=== PATIENT | male | born 1985 | race Caucasian/White ===

== ENCOUNTER 2023-09-14 21:01 | Emergency (ER) | payer MEDICARE, MEDICAID, SELFPAY ==
[2023-09-14 21:11] VITALS: BP 132/60; PULSE 100; RESP 18; TEMP 36.3; O2SAT 94
--- NOTE | 2023-09-14 21:12 | W.ED.GENAD ---
Discharge Plan Disposition Patient Disposition: [facility] Condition: Improving Discharge Details Chief Complaint: GenMedical Clinical Impression: Alcohol intoxication Primary Care Provider: Unknown,Unknown ED Provider: Harpreet Huffman Discharge Instructions Instructions: Alcohol Intoxication (ED) HPI General Date/Time Provider Initiated Documentation: 09/14/23 21:12. HPI Narrative: 38-year-old male brought in by [employer] for medical clearance in order to be taken to [facility] after being picked up for domestic dispute in the setting of alcohol intoxication. Review of Systems Narrative: Review of Systems Constitutional: negative Eyes: negative ENT: negative Cardiovascular: negative Respiratory: negative Gastrointestinal: negative : negative Musculoskeletal: negative Skin: negative Neurologic: negative Psych: negative Exam Narrative Exam Narrative: Physical Examination General: alert, awake, cooperative, resting comfortably, no acute distress HEENT: normocephalic, atraumatic; PERRL, EOM intact, conjunctiva normal; no nasal discharge; moist mucous membranes, tolerating secretions Neck: supple, trachea midline; full ROM Chest: normal to inspection Respiratory: normal respiratory effort, speaking in full sentences Skin: no lesions, rashes or trauma appreciated Neuro: AAOx3, normal speech, moving all extremities Extremities: No signs of trauma Psych: Appropriate mood and affect Medical Decision Making 38-year-old male brought in by [employer] for evaluation and medical clearance before being taken to [facility] picked up for domestic dispute in the setting of alcohol intoxication, patient alert oriented interactive calm cooperative following commands, no external signs of trauma, no respiratory distress, normoxic 94% on room air, moderately tachycardic at 100 bpm, normotensive, nonfocal on examination, although patient had been drinking this evening patient is clinically sober ambulatory without ataxia normal clear speech, no SI no HI. Patient medically cleared to be taken to police custody. Quality:SDOH Health Related Social Needs: No Data to Display PFSH All Active Problems (Updated 09/14/23 @ 21:16 by Harpreet Huffman MD) Alcohol intoxication (Acute) Social History Smoking risk assessment performed?: No
[2023-09-14 21:14] VITALS: BP 132/60; PULSE 100; RESP 18; TEMP 36.3; O2SAT 94
== END 2023-09-14 21:18 ==
LOC: ER 21:22
PROVIDERS: Emergency Provider Emergency Medicine
DX: F10.120 Alcohol abuse with intoxication, uncomplicated (principal)
CPT/HCPCS: 99283